=== PATIENT | male | born 1980 | race Caucasian/White ===

== ENCOUNTER 2020-05-10 14:44 | Emergency (ER) | payer OTHER ==
[~2020-05-10] VITALS: Ht 175.3 cm; Wt 78.9 kg
[2020-05-10 14:54] VITALS: BP 151/102
--- NOTE | 2020-05-11 11:02 | EKG ---
[place] [address] ELECTROCARDIOGRAM REPORT Name: AROLDO RIOS Room: [facility]#: [id number] Admission: 05/10/20 Attend Phys: Discharge: 05/10/20 Date of : 78 Date of Service: 05/10/20 1536 Report #: [id number] THIS REPORT FOR: //name// [facility] ED Test Date: 2020-05-10 Test Time: 15:36:27 Pat Name: AROLDO RIOS Department: Room: Gender: [employer]: : 1980 Requested By: Jose Ramon Hernández Order Number: [id number] MD: Monster Santos Measurements Intervals [place] Rate: 106 P: 76 WI: 154 QRS: 77 QRSD: 88 T: 47 QT: 322 QTc: 428 Interpretive Statements Sinus tachycardia ST elev, probable normal early repol pattern Baseline wander in lead(s) V2 No previous ECG available for comparison Electronically Signed On 05-11-2020 11:02:36 NUTRITION INTERN by Monster Santos [email or web address] <ELECTRONICALLY SIGNED> By: Monster Santos MD, FAC 05/11/20 1102 1536 1536 Monster Santos MD, [facility] /EPI
== END 2020-05-10 15:52 | disposition left against medical advice (07) ==
LOC: M.ERS 14:44
DX: F41.9 Anxiety disorder, unspecified (principal); R51.9 Headache, unspecified; F17.210 Nicotine dependence, cigarettes, uncomplicated